=== PATIENT | female | born 1930 | race Caucasian/White ===

== ENCOUNTER → 2017-03-14 | Outpatient (CLI) | payer MEDICARE ==
[~2017-03-14] MED LIST: REGADENOSON 0.4 MG/5 ML DISP.SYRIN. IV ONE
--- NOTE | 2017-03-14 12:38 | PCVCIMAG ---
APPROVED REPORT Exam: Nuclear Stress Test Indication: Chest Pain, Afib, DVT Patient Location: Out-Patient Stress Nurse: Marivel Luque RN, RIGOBERTO Figueroa Tech:Cleve CampaMARTINETCB Ht: 5 ft 0 in Wt: 136 lbs BSA: 1.58 m2 HR: 67 bpm BP: 171/70 mmHg BMI: 26.5 Rhythm: SR IVCD Medical History Medical History: Age, CHF, Medications: Lisinopril, Imdur, Furosemide, Eliquis Allergies: Alleve Pretest Chest Pain Characteristics: No chest pain Exercise History: Sedentary Meds Held (24 hrs): Imdur NM EXAM: Myocardial Perfusion REST/STRESS Imaging Protocol: Rest Tc-99m/Stress Tc-99m 1 day Resting Data Rest SPECT myocardial perfusion imaging was performed in supine position 45 minutes following the intravenous injection of 10.6 mCi of Tc-99m Sestamibi. Time of rest injection: 0900 Date: 03/14/2017 Pharmacologic Stress Pharmacologic stress test was performed by injecting Regadenoson 0.4 mg IV push followed by the intravenous injection of 32 mCi of Tc-99m Sestamibi. Time of stress injection: 1015 Date: 03/14/2017 The images were gated to evaluate regional wall motion and calculate left ventricular ejection fraction. Study Data Post stress, the left ventricular ejection was 70%.. SSS: 1 SRS: 1 SDS: 0 TID = 0.84. Perfusion There is a large area of moderately reduced uptake in the entire segment of the inferolateralinferior wall which is seen on the stress images as well as the resting images. This area thickens and moves normally and is most consistent with attenuation artifact. Nuclear Conclusion 1. LOW RISK STUDY Interpreted by: Brayden Garivn MD Electronically Approved: 03/14/2017 12:37:05 Stress Test Details Stress Test: Pharmacologic stress testing performed using 0.4 mg of regadenoson per 5 mL given IV over 10 seconds. Reason for pharmacologic stress test: physical limitation. HR Resting HR: 67 bpmMax Heart Rate (APMHR): 132 bpm Max HR Achieved: 87 bpmTarget HR (85% APMHR): 112 bpm % of APMHR: 65 Recovery HR: 83 bpm BP Resting BP: 171/70 mmHg Max BP: 154/69 mmHg ECG Resting ECG: Sinus Rhythm, IVCD Stress ECG: Sinus Rhythm, IVCD Recovery ECG: Sinus Rhythm, IVCD, NSSTT changes Clinical Reason for Termination: Completed protocol Stress Symptoms: Headache Symptoms resolved with caffeine. Stress ECG Conclusion 1. ADEQUATE RESPONSE TO IV LEXISCAN 2. INADEQUATE HEART RATE FOR ECG DIAGNOSIS <Conclusion> 1. ADEQUATE RESPONSE TO IV LEXISCAN 2. INADEQUATE HEART RATE FOR ECG DIAGNOSIS
== END | disposition home or self-care (01) ==
LOC: EDSTATUS 08:13 → PCVCIMAG 08:41
PROVIDERS: ATTEND Internal Medicine
DX: I48.91 Unspecified atrial fibrillation (principal); I45.9 Conduction disorder, unspecified; I50.9 Heart failure, unspecified; K52.9 Noninfective gastroenteritis and colitis, unspecified; I82.409 Acute embolism and thrombosis of unspecified deep veins of unspecified lower extremity
CPT/HCPCS: 78452; 93017; A9500; J2785